=== PATIENT | female | born 1950 ===

== ENCOUNTER → 2020-06-29 08:00 | Outpatient (CLI) | payer OTHER ==
[~2020-06-29 08:00] MED LIST: ADVAIR 2501 DISK W/1; ATACAND4 MG; CIPRO500 MG; HYDROXYCHLOROQ200 MG; PREDNISONE20 MG; SINGULAIR10 MG; SYNTHROID150 MCG; SYNTHROID175 MCG PO; SYNTHROID200 MCG; VOLTAREN100 GM PO
== END | disposition home or self-care (01) ==
LOC: LAB 08:00 → ADM 08:15 → EDSTATUS 07-06 08:15 → CIR.AMB 07-06 08:15
PROVIDERS: ATTEND Orthopaedic Surgery Hand Surgery
DX: M65.311 Trigger thumb, right thumb (principal); Z01.810 Encounter for preprocedural cardiovascular examination; E11.9 Type 2 diabetes mellitus without complications; E78.00 Pure hypercholesterolemia, unspecified; E78.3 Hyperchylomicronemia; D65 Disseminated intravascular coagulation [defibrination syndrome]; D66 Hereditary factor VIII deficiency; N39.0 Urinary tract infection, site not specified; R05 Cough; Z20.822 Contact with and (suspected) exposure to COVID-19; I10 Essential (primary) hypertension